=== PATIENT | female | born 1980 ===

== ENCOUNTER 2021-11-18 10:13 | Emergency (ER) | payer BC ==
--- NOTE | 2021-11-18 10:22 | EDM.PDOC ---
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 The patient states that she has put hydrocortisone cream on it, soaked in water and peroxide and use warm water soaks and attempts to treat the area. Patient has never had anything like this previously. The patient is able to urinate without difficulty. The patient has used Tylenol [id number] for pain. Prior to this current complaint the patient has been otherwise healthy. Patient denies any fever, chills, headache, change in vision, syncope or near syncope. Denies any chest pain, back pain, shortness of breath or cough. Denies any abdominal pain, nausea, vomiting, diarrhea, constipation or dysuria. Has not noted any blood in urine or stool. Patient has been eating and drinking appropriately. Review of systems: As per history of present illness and below otherwise all systems reviewed and negative. Past medical history: As per history of present illness and as reviewed below otherwise noncontributory. Surgical history: As per history of present illness and as reviewed below otherwise noncontributory. Social history: See social history for further information Family history: As per history of present illness and as reviewed below otherwise noncontributory. Physical exam: General: Well developed and well nourished. Alert and orientated x 3. Nontoxic in appearance and in no acute distress. Vital signs are stable and have been reviewed by me. Nursing notes were reviewed. HEENT: Atraumatic, normocephalic, pupils equal and reactive bilaterally, negative for conjunctival pallor or scleral icterus, mucous membranes moist, TMs normal bilaterally, throat clear, neck supple, nontender, trachea midline. No drooling or trismus noted. No meningeal signs. No hot potato voice noted. Lungs: Clear to auscultation bilaterally. No wheezes, rales, or rhonchi. Chest nontender. Normal work of breathing, no accessory muscles used. Heart: S1S2, regular rate and rhythm without overt murmur, gallops, or rubs. No JVD. No peripheral edema Abdomen: Soft, nondistended, nontender. Normoactive bowel sounds. Negative for masses or costovertebral tenderness. Genitourinary: Erythema and swelling of left labia majora Bartholin area. Skin: Intact, warm, dry. No lesions or rashes noted. Hematologic: No petechiae or purpra. Mucosa appropriate color and normal nail bed color and refill. Extremities: Atraumatic, moves all extremities per self without difficulty or deficits, negative for cords or calf pain. Neurovascular unremarkable. Neuro: Awake, alert, oriented. Cranial nerves II through XII unremarkable. Cerebellum unremarkable. Motor and sensory unremarkable throughout. Exam nonfocal. Psychiatric: Mood and affect are appropriate. Normal thought process. Answering questions appropriately. Notes: *This patient was seen and evaluated during the 2019 SARS-CoV-2 novel coronavirus pandemic period. Community viral transmission is ongoing at time of this encounter and the emergency department is operating under pandemic response procedures. The patient is a 41-year-old female who presents to the emergency department with complaints of painful left swollen labia majora that started on 11/13/21. Educated the patient and her on the process for incise and drainage of the Bartholin cyst and they were agreeable to the plan. I offered anxiety medication and pain medication orally or initially and the patient declined. I instilled 3 cc of lidocaine 1% to aspirate fluid and did obtain some. I instilled another 3 cc of lidocaine 1% and the patient stated that she could not go through with the procedure. The patient stated that she wanted to be completely numb or knocked out for the procedure. I did explain that with the pH of the fluid in the cyst that I cannot get the patient completely numb and she stated that this is not something she wanted to do in the emergency department. The patient declined multiple offers of pain medication and anxiety medication. I consulted with Dr. 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 The patient is agreeable with this plan. I prescribed the patient Flagyl 500 p.o. twice daily for 5 days. I gave the patient detailed instructions on when she would need to return to the emergency department if she were to become septic. The patient and her verbalized understanding were agreeable with this discharge plan. I have talked with the patient about today's findings, in addition to providing specific details for plan of care. Reassessment at the time of disposition demonstrates that the patient is in no acute distress. The patient is stable for discharge, counseling was provided and we discussed in great detail signs and symptoms that would prompt them to return to the Emergency Department. Medication, follow up and supportive care measures were reviewed and discussed. Voices understanding and is agreeable to plan of care. Denies any further questions or concerns at this time. Therapeutics: Lidocaine 1% Prescription: Flagyl 500 mg p.o. twice daily for 5 days Impression: Bartholin cyst Plan: 1. You were evaluated today on an emergent basis. Your complaints of left labia swelling was evaluated and found to be a Bartholin cyst that needed to be drained and excised. As you are unable to tolerate the procedure I called Dr. Cerda the OBGYN regarding the need to have this excised and drained and your desire to be completely numb. You declined any pain medication or anxiety medication. advised to continue on Flagyl 500 mg p.o. twice a day was sent sent to [facility] and she will have her office call you on Sunday to set up an appointment. You can use a warm compress for pain or discomfort. You can also use Tylenol or Motrin as needed for pain and discomfort. As we talked about if you develop a fever or are unable to urinate you need to return to the emergency department as this is an emergent need. If you start to generally feel bad and are developing nausea vomiting or any other symptoms please return to the emergency department as this could mean your infection has spread throughout your body. 2. You can alternate Tylenol and ibuprofen as needed for pain and fever management. 3. We encourage you to follow up with your primary care provider and/or recommended specialist in the next few days for re-evaluation and further care/management. 4. If your symptoms should worsen, new symptoms develop or any of the signs and symptoms we discussed should arise please return to the emergency room or call 911 (if needed). Definitive disposition and diagnosis as appropriate pending reevaluation and review of above. Labial Pain Score (Numeric/FACES): 10 - Related Data Allergies Allergy/AdvReac Type Severity Reaction Status Date / Time No Known Allergies Allergy Verified 11/18/21 10:25 Home Meds: Home Meds Amitriptyline [Elavil] 1 tab PO DAILY 11/18/21 [History] metroNIDAZOLE [Flagyl] 500 mg PO Q12H 5 Days #10 tab 11/18/21 [Rx] ED ROS GENERAL - Review of Systems Review Of Systems: Comprehensive ROS is negative, except as noted in HPI. ED EXAM, GI/ABD - Physical Exam Exam: See Below (See dictation) Course - Vital Signs Last Recorded V/S: Last Vital Signs Temp 97.8 F 11/18/21 11:55 Pulse 100 11/18/21 11:55 Resp 18 11/18/21 11:55 BP 122/62 11/18/21 11:55 Pulse Ox 100 11/18/21 11:55 - Orders/Labs/Meds Meds: Medications Discontinued Medications Generic Name Dose Route Start Last Admin Trade Name Dhara PRN Reason Stop Dose Admin Lidocaine HCl 5 ml 11/18/21 10:35 11/18/21 10:58 Lidocaine 1% 5 Ml Sdv INJECT 11/18/21 10:36 5 ml ONETIME ONE Administration Lidocaine HCl 10 ml 11/18/21 11:02 11/18/21 11:08 Lidocaine 1% 5 Ml Sdv INJECT 11/18/21 11:03 10 ml ONETIME ONE Administration Departure - Departure Time of Disposition: 11:45 Disposition: Home, Self-Care 01 Condition: Good Clinical Impression: Cyst of Bartholin's gland duct - Discharge Information *PRESCRIPTION DRUG MONITORING PROGRAM REVIEWED*: No *COPY OF PRESCRIPTION DRUG MONITORING REPORT IN PATIENT JEFFREY: No Prescriptions: metroNIDAZOLE [Flagyl] 500 mg PO Q12H 5 Days #10 tab Instructions: Bartholin's Cyst, [id number] Forms: ED Department Discharge Additional Instructions: The following information is given to patients seen in the emergency department who are being discharged to home. This information is to outline your options for follow-up care. We provide all patients seen in our emergency department with a follow-up referral. The need for follow-up, as well as the timing and circumstances, are variable depending upon the specifics of your emergency department visit. If you don't have a primary care physician on staff, we will provide you with a referral. We always advise you to contact your personal physician following an emergency department visit to inform them of the circumstance of the visit and for follow-up with them and/or the need for any referrals to a consulting specialist. The emergency department will also refer you to a specialist when appropriate. This referral assures that you have the opportunity for follow-up care with a specialist. All of these measure are taken in an effort to provide you with optimal care, which includes your follow-up. Under all circumstances we always encourage you to contact your private physician who remains a resource for coordinating your care. When calling for follow-up care, please make the office aware that this follow-up is from your recent emergency room visit. If for any reason you are refused follow-up, please contact the [facility] Emergency Department at and asked to speak to the emergency department charge nurse. [facility] [address] [place] [id number] [id number] Plan: 1. You were evaluated today on an emergent basis. Your complaints of left labia swelling was evaluated and found to be a Bartholin cyst that needed to be drained and excised. As you are unable to tolerate the procedure I called Dr. Cerda the OBGYN regarding the need to have this excised and drained and your desire to be completely numb. You declined any pain medication or anxiety medication. advised to continue on Flagyl 500 mg p.o. twice a day was sent sent to [facility] and she will have her office call you on Sunday to set up an appointment. You can use a warm compress for pain or discomfort. You can also use Tylenol or Motrin as needed for pain and discomfort. As we talked about if you develop a fever or are unable to urinate you need to return to the emergency department as this is an emergent need. If you start to generally feel bad and are developing nausea vomiting or any other symptoms please return to the emergency department as this could mean your infection has spread throughout your body. 2. You can alternate Tylenol and ibuprofen as needed for pain and fever management. 3. We encourage you to follow up with your primary care provider and/or recommended specialist in the next few days for re-evaluation and further care/management. 4. If your symptoms should worsen, new symptoms develop or any of the signs and symptoms we discussed should arise please return to the emergency room or call 911 (if needed).
== END 2021-11-18 11:56 | disposition home or self-care (01) ==
LOC: MW.ED 10:13
DX: N75.0 Cyst of Bartholin's gland (principal)
CPT/HCPCS: 99283